=== PATIENT | female | born 2000 | race African-American/Black ===

== ENCOUNTER 2020-05-10 18:48 | Emergency (ER) | payer MEDICAID ==
[~2020-05-10] VITALS: Ht 167.6 cm; Wt 63.5 kg
[2020-05-10 18:56] VITALS: BP 116/73
[2020-05-10] MEDS ORDERED: Ketorolac 30mg Inj IV ONE (19:00)
--- NOTE | 2020-05-10 19:08 | NUR ---
ED Nurse Note:pt. was BIBA from home with opiate overdose, she stated taking 1 percoset no alcohol, , skin is intact, pt. is A/ox3, c/o headache, given IV fluids, placed on cardiac/vascular sonographer
--- NOTE | 2020-05-10 19:09 | NUR ---
HAND-OFF: Report given to Liz.
--- NOTE | 2020-05-10 19:10 | NUR ---
ED Nurse Note: Report received from MAURICIO Skaggs. Patient is sleeping at this time. IV fluids infusing. NAD noted. Will continue to monitor.
--- NOTE | 2020-05-10 19:46 | Emergency Room Report ---
History of Present Illness General Chief Complaint: Substance Abuse Source: Patient, EMS Present Illness HPI Disclaimer: Please note that this report is being documented using DRAGON technology. This can lead to erroneous entry secondary to incorrect interpretation by the dictating instrument. HPI: 19-year-old female no reported past medical history presented from the street due to possible overdose. Apparently a friend gave her a Percocet and she became unresponsive. EMS was called by friends, she was found to be unresponsive with pinpoint pupils, given Narcan by EMS and was alert and oriented on arrival. She denied any medical history. Did complain of a headache. And Zofran prior to arrival. Allergies: Coded Allergies: No Known Allergies (Unverified , 05/10/20) COVID-19 Screening Contact w/high risk pt: No Experienced COVID-19 symptoms?: No COVID-19 Testing performed CUSTOMER RELATIONS COORDINATOR: No Patient History Last Menstrual Period: unk Now: No Reviewed Nursing Documentation: PMH: Agreed; PSxH: Agreed Nursing Documentation-PMH Past Medical History: No Stated History Review of Systems All Other Systems: negative except mentioned in HPI Physical Exam Vital Signs Date Time Temp Pulse Resp B/P (MAP) Pulse Ox O2 Delivery O2 Flow Rate FiO2 05/10/20 18:47 98.8 100 18 136/72 (93) 99 Room Air Sp02 EP Interpretation: reviewed, normal General Appearance: well appearing, no apparent distress Head: normocephalic, atraumatic Eyes: bilateral eye PERRL, bilateral eye EOMI ENT: hearing grossly normal, moist mucus membranes Neck: full range of motion, supple Respiratory: lungs clear, normal breath sounds, no rhonchi, no respiratory distress, no retraction, no wheezing Cardiovascular #1: normal peripheral pulses, regular rate, rhythm, no murmur Gastrointestinal: non tender, soft, non-distended, no guarding Neurologic: alert, oriented x3, no focal defects Skin: normal color, warm/dry Medical Decision Making Diagnostic Impression: Primary Impression: Opiate overdose ER Course MDM: Differential diagnosis included but not limited to narcotic overdose, substance abuse, less likely infectious process. Clinical course-patient placed on a gurney. Placed on a monitor. She was alert and oriented on arrival. She was given IV fluids and Toradol for headache. Based on her history of taking a Percocet I do believe she did have a narcotic overdose that was treated appropriately by EMS with Narcan. After observation of 2 hours patient in no acute distress, nontoxic-appearing, no recurrent respiratory depression. Patient stable for discharge. Last Vital Signs Date Time Temp Pulse Resp B/P (MAP) Pulse Ox O2 Delivery O2 Flow Rate FiO2 05/10/20 18:56 93 18 Room Air 05/10/20 18:56 98.8 116/73 99 Disposition: HOME, SELF-CARE Condition: Improved Scripts No Active Prescriptions or Reported Meds Referrals: [facility],REFERRING (PCP) Renny Bull M.D. May 10, 2020 19:46
--- NOTE | 2020-05-10 21:00 | NUR ---
ED Nurse Note: Patient is awake and alert, oriented x4. Patient is requesting to go home. She is calling family to come pick her up.
[2020-05-10 21:25] VITALS: BP 116/65
--- NOTE | 2020-05-10 21:25 | NUR ---
ER DISCHARGE NOTE: Patient is cleared to be discharged per ERMD, pt is aox4, on room air, with stable vital signs. pt was given dc instructions, pt was able to verbalize understanding, pt id band and IV removed. pt is able to ambulate with steady gait. pt took all belongings.
== END 2020-05-10 21:25 | disposition home or self-care (01) ==
LOC: EDBD 18:48 → EMR 19:19
DX: T40.601A Poisoning by unspecified narcotics, accidental (unintentional), initial encounter (principal); Y92.9 Unspecified place or not applicable; R51.9 Headache, unspecified
CPT/HCPCS: 96361; 96374; J1885; Z7502; 99284